=== PATIENT | male | born 1960 | race Caucasian/White ===

== ENCOUNTER 2020-12-16 08:29 | Outpatient (REF) | payer OTHER, SELFPAY ==
[2020-12-16 09:42] LABS: MANUAL DIFF FLAG NO
[2020-12-16 09:46] LABS: Basophils Percent Auto 0.3 % (0-2); Eosinophils Absolute Auto 0.1 X10*3/uL (0.0-0.4); Eosinophils Percent Auto 2.4 % (0-4); Hematocrit 45.5 % (42-52); Hemoglobin 14.6 g/dl (14.0-18.0); Imm Gran Abs Auto 0.01 X10*3/uL (0.00-0.03); Imm Gran Pct Auto 0.3 % (0.0-0.4); Lymphocytes Absolute Auto 1.1 X10*3/uL (1.2-4.9); Lymphocytes Percent Auto 37.2 % (20-40); Mean Corpuscular HGB Conc 32.1 g/dl (31.0-36.0); Mean Corpuscular Hemoglobin 27.8 pg (27.0-33.0); Mean Corpuscular Volume 86.5 fL (80-98); Mean Platelet Volume 9.4 fL (9.4-12.4); Monocytes Absolute Auto 0.3 X10*3/uL (0.1-1.2); Monocytes Percent Auto 10.8 % (2-11); Neutrophils Absolute Auto 1.5 X10*3/uL (2.0-8.3); Platelet Count 179 X10*3/uL (160-400); Red Blood Count 5.26 X10*6/uL (4.60-5.80); Red Cell Distribution Width 12.4 % (11.0-16.0)
[2020-12-16 10:16] LABS: Alanine Aminotransferase 15 U/L (0-40); Albumin Level 4.2 g/dL (3.5-5.0); Alkaline Phosphatase 64 U/L (39-117); Anion Gap 12 (12-20); Aspartate Amino Transferase 22 U/L (5-37); Bilirubin Total 0.9 mg/dL (0.0-1.0); Blood Urea Nitrogen 14 mg/dL (9-16); Calcium 9.3 mg/dL (8.4-10.2); Carbon Dioxide 28 mmol/L (22-29); Chloride 106 mmol/L (96-108); Cholesterol 196 mg/dL; Estimated Glomerular Filt Rate > 60; Glucose Random 83 mg/dL (60-115); HDL Cholesterol 50 mg/dL; LDL Cholesterol Calculated 133 mg/dl; Sodium 141 mmol/L (135-145); Total Protein 6.6 g/dL (6.5-8.0); Triglycerides 65 mg/dL
[2020-12-16 10:40] LABS: Free T4 (Free Thyroxine) 1.04 ng/dL (0.71-1.85); Thyroid Stimulating Hormone 1.08 uIU/mL (0.32-4.0)
[2020-12-18 03:56] LABS: Folate 9.4 ng/mL (> or = 4.0); Vitamin B12 501 pg/mL (200-900)
== END 2020-12-16 08:30 | disposition home or self-care (01) ==
LOC: HO.LAB 08:29
PROVIDERS: PCP Internal Medicine; Visit Provider Internal Medicine
DX: E78.00 Pure hypercholesterolemia, unspecified (principal); Z12.5 Encounter for screening for malignant neoplasm of prostate
CPT/HCPCS: 36415; 80053; 80061; 82607; 82746; 84153; 84439; 84443; 85025

== ENCOUNTER 2022-12-07 09:29 | Outpatient (REF) | payer OTHER, SELFPAY ==
[2022-12-07 09:38] LABS: MANUAL DIFF FLAG NO
[2022-12-07 10:43] LABS: Basophils Percent Auto 0.3 % (0-2); Eosinophils Absolute Auto 0.1 X10*3/uL (0.0-0.4); Eosinophils Percent Auto 2.2 % (0-4); Hematocrit 45.5 % (42.0-52.0); Hemoglobin 14.7 g/dl (14.0-18.0); Lymphocytes Absolute Auto 1.4 X10*3/uL (1.2-4.9); Lymphocytes Percent Auto 38.5 % (20-40); Mean Corpuscular HGB Conc 32.3 g/dl (31.0-36.0); Mean Corpuscular Hemoglobin 27.6 pg (27.0-33.0); Mean Corpuscular Volume 85.5 fL (80.0-98.0); Mean Platelet Volume 9.1 fL (9.4-12.4); Monocytes Absolute Auto 0.4 X10*3/uL (0.1-1.2); Monocytes Percent Auto 10.1 % (2-11); Neutrophils Absolute Auto 1.8 x10*3/uL (2.0-8.3); Neutrophils Percent Auto 48.9 % (45-73); Platelet Count 200 X10*3/uL (160-400); Red Blood Count 5.32 X10*6/uL (4.60-5.80); Red Cell Distribution Width 12.6 % (11.0-16.0); White Blood Count 3.7 X10*3/uL (4.8-10.8)
[2022-12-07 11:19] LABS: Alanine Aminotransferase 16 U/L (0-40); Albumin Level 4.1 g/dL (3.5-5.0); Alkaline Phosphatase 72 U/L (39-117); Anion Gap 11 (12-20); Aspartate Amino Transferase 22 U/L (5-37); Bilirubin Total 0.9 mg/dL (0.0-1.0); Blood Urea Nitrogen 13 mg/dL (9-16); Calcium 9.2 mg/dL (8.4-10.2); Carbon Dioxide 30 mmol/L (22-29); Chloride 106 mmol/L (96-108); Cholesterol 186 mg/dL; Estimated Glomerular Filt Rate > 60; Glucose Random 90 mg/dL (60-115); HDL Cholesterol 48 mg/dL; LDL Cholesterol Calculated 125 mg/dl; Potassium 4.2 mmol/L (3.3-5.1); Sodium 143 mmol/L (135-145); Total Protein 6.4 g/dL (6.5-8.0); Triglycerides 65 mg/dL
[2022-12-07 11:50] LABS: Folate 11.2 ng/mL (> or = 4.0); Free T4 (Free Thyroxine) 1.03 ng/dL (0.71-1.85); Prostate Specific Antigen Scr 2.62 ng/mL (<0.05-4.0); Thyroid Stimulating Hormone 1.18 uIU/mL (0.32-4.0); Vitamin B12 749 pg/mL (200-900)
== END 2022-12-07 09:30 | disposition home or self-care (01) ==
LOC: HO.LAB 09:29
PROVIDERS: PCP Internal Medicine; Visit Provider Internal Medicine
DX: E78.00 Pure hypercholesterolemia, unspecified (principal); Z12.5 Encounter for screening for malignant neoplasm of prostate
CPT/HCPCS: 36415; 80053; 80061; 82607; 82746; 84153; 84439; 84443; 85025

== ENCOUNTER 2024-01-09 16:02 | Outpatient (AMB) | payer BC, SELFPAY ==
[2024-01-09 16:03] VITALS: BP 102/68; PULSE 72; O2SAT 98; BMI 23.9
--- NOTE | 2024-01-09 16:03 | A.OFFPC_ITS ---
Vital Signs 3 01/09/24 16:03 Height 5 ft 9 in Weight 162 lb 0.8 oz BMI 23.9 BP 102/68 Blood Pressure Location Lt brachial Position Sitting Pulse 72 Pulse Source Pulse Oximeter Pulse Oximetry (%) 98 Oxygen Delivery Method Room Air Intake Visit Reasons: Annual PE Intake Note: Patient is here today for a physical. 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 Allergies No Known Allergies Allergy (Verified 01/09/24 16:04) Medication List - Last Reconciled 01/09/24 by Mechelle Modi MD cholecalciferol (vitamin D3) 50 mcg PO DAILY Tobacco use date assessed: 01/09/24 Fall risk assessment: No Falls in past year Last assessed Fall Risk: 01/09/24 Dental Screening Dental Screen Date: 01/09/24 Did you have a dental visit in the last 12 months?: Yes Did you have a dental problem in the last 6 months where you did not have access to dental care?: No Was dental information given to patient?: Patient has dentist HPI Annual PE 2 HPI0 Details 63-year-old male with hypercholesterolem ia last seen last year for physical. Colonoscopy September 2012. 3 weeks ago lower back pain PFSH Medical History (Updated 01/09/24 @ 17:00 by Mechelle Modi MD) Pleomorphic adenoma of minor salivary gland Hay fever Vitamin D deficiency Hypercholesterolemia Surgical History (Updated 11/12/20 @ 16:12 by Mechelle Modi MD) History of tonsillectomy H/O inguinal hernia repair Family History (Updated 11/26/22 @ 10:58 by Gaviota Soto CMA) Father Lung cancer Brother Substance abuse Mother No problems noted. Sister No problems noted. Sister No problems noted. Social History (Updated 01/09/24 @ 16:38 by Mechelle Modi MD) Housing: House Alcohol intake: current Alcohol intake frequency: a few times a month Comment: 2 beers a month Patient Tobacco Use Status: Never used Tobacco e-Cigarette/Vaping Use: Never Used Second Hand Smoke Exposure: No Current occupational status: employed Cognitive needs: No Hearing needs: Yes Vision needs: Yes Questionnaire PHQ-9 Over the last 2 weeks, how often have you been bothered by any of the following problems? 1. Little interest or pleasure in doing things: not at all 2. Feeling down, depressed, or hopeless: not at all 3. Trouble falling or staying asleep, or sleeping too much: not at all 4. Feeling tired or having little energy: not at all 5. Poor appetite or overeating: not at all 6. Feeling bad about yourself - or that you are a failure or have let yourself or your family down: not at all 7. Trouble concentrating on things, such as reading the newspaper or watching television: not at all 8. Moving or speaking so slowly that other people could have noticed. Or the opposite - being so fidgety or restless that you have been moving around a lot more than usual: not at all 9. Thoughts that you would be better off or of hurting yourself in some way: not at all Total score: 0 Depression Screening Interpretation: Negative Depression Screening Done: Yes Source: Developed by Drs. Tomer Remy, Valeria Hernandez, Sukumar Edmonds and colleagues, with an educational valery from [employer] Thrive Questionnaire Date Thrive assessed: 01/09/24 I am a: Patient What is your living situation today?: I have a steady place to live Within the past 12 months, did the food you bought not last and you didn't have the money to get more?: Never true Within the past 12 months, did you worry whether your food would run out before you got money to buy more?: Never true Do you have trouble paying for medicines?: No Do you have trouble getting transportation to medical appointments?: No Do you have trouble paying your heating and electricity bill?: No Do you have trouble taking care of your child, family member or friend?: No Do you have trouble with day-to-day activities such as bathing, preparing meals, shopping, managing finances, etc.?: No Are you currently unemployed and looking for a job?: No Are you interested in more education?: No Please select the resources that you would like help with: None Currently or been in a relationship where the following occur: no concerns reported THRIVE Score: 0 AUDIT C Alcohol Use Questionnaire (AUDIT-C) 1. How often do you have a drink containing alcohol?: Monthly or less 2. How many drinks containing alcohol do you have on a typical day when you are drinking?: 1 or 2 3. How often do you have six or more drinks on one occasion?: Never Total Score: 1 HOMA-7 AMB Questionnaire HOMA-7 Date HOMA - 7 assessed: 01/09/24 Feeling nervous, anxious, or on edge: 0 = Not at all Not being able to stop or control worryin = Not at all Worrying too much about different things: 0 = Not at all Trouble relaxin = Not at all Being so restless that it is hard to sit still: 0 = Not at all Becoming easily annoyed or irritable: 0 = Not at all Feeling afraid as if something awful might happen: 0 = Not at all Total HOMA-7 score (0-4 normal; 5-9 mild; 10-14 moderate; 15-21 severe): 0 Source: Developed by Drs. Tomer Remy, Valeria Hernandez, Sukumar Edmonds and colleagues, with an educational valery from [employer] HOMA-7 Assessment Billing HOMA-7 Assessment Tool: HOMA-7 Assessment 98180 Review of Systems Const Denies poor appetite and Denies weakness Eyes Denies no additional complaints ENT Reports Normal hearing present, Denies dizziness, Denies nasal congestion, Denies tinnitus and Denies sore throat Card Denies chest pain, Denies syncope, Denies rapid heart rate and Denies dyspnea Resp Denies cough and Denies dyspnea GI Denies change in stool character, Reports constipation, Denies diarrhea, Denies nausea and Denies vomiting Denies dysuria and Denies urinary frequency Neuro Reports Normal hearing present, Denies confusion, Denies dizziness, Denies syncope and Denies weakness Psych Denies confusion Physical exam (Primary Care) Vital Signs: Last Vital Signs Pulse 72 01/09/24 16:03 BP 102/68 01/09/24 16:03 Pulse Ox 98 01/09/24 16:03 Oxygen Delivery Method Room Air 01/09/24 16:03 BMI result Body Mass Index 23.9 Tobacco/Smoking Status: Tobacco use Status Tobacco use date assessed 01/09/24 01/09/24 16:05 Patient Tobacco Use Status Never used Tobacco 01/09/24 16:05 e-Cigarette/Vaping Use Never Used 01/09/24 16:05 PHQ-9: PHQ-9 Score PHQ-9: Total score 0 01/09/24 16:09 Depression Screening Interpretation: Negative Thrive Assessment: Date of Thrive Assessment Date Thrive assessed 01/09/24 01/09/24 16:05 Currently or been in a relationship where the following occur: no concerns reported Const General: No confusion Orientation/consciousness: No confusion HENRI Head: Yes normocephalic Head images: 2 1. 3 cm mass noted hard mass, no redness Ears: external ears normal and TM's normal bilaterally Face and sinus: Yes normal facial exam Mouth: moist mucous membranes Throat: Yes tonsils normal Eyes Conjunctivae: conjunctivae normal Pupils: Equal, round and reactive pupils present and Pupil accommodation reflex normal Direct Ophthalmoscopy: normal light reflex Neck Neck: No lymphadenopathy Thyroid: Thyroid normal Chest Chest palpation & inspection: normal inspection of the chest Resp Effort & Inspection: normal respiratory effort and no audible wheezes Auscultation: clear to auscultation bilaterally, no crackles, no wheezes and lung sounds not diminished Cardio Rate: regular rate Rhythm: regular rhythm Peripheral pulses: radial pulses present and dorsalis pedis present GI Palpation (GI): no masses Auscultation: normal bowel sounds and normoactive bowel sounds Rectal Exam - Male: Yes deferred Abdomen image: 2 1. ventral hernia 2. R inguinal hernia Male General Exam: Yes normal external exam Skin General skin exam: no rashes or lesions noted Rashes: no rashes Neuro General: No confusion Cranial nerves: Yes Equal, round and reactive pupils present and Yes Normal hearing present Cognition (Neuro): normal cognition Gait exam (Neuro): Normal gait present Motor exam (neuro): 5/5 motor strength present throughout Deep tendon reflexes (DTR's): Right brachioradialis reflex intensity grade: 2+, Left brachioradialis reflex intensity grade: 2+, Right patellar reflex intensity grade: 2+ and Left patellar reflex intensity grade: 2+ Extrem General: No edema Assessment and Plan Assessment & Plan (1) Annual physical exam: Code(s): Z00.00 - Encounter for general adult medical examination without abnormal findings (2) Hypercholesterolemia: Code(s): E78.00 - Pure hypercholesterolemia, unspecified Plan: Avoid fried foods, chicken skin, eggs, butter margarine, pastries and meat. Be it pork or beef they have a lot of cholesterol LDL goal of less than 130 and triglyceride of less than 150 diet controlled (3) Colon cancer screening: Code(s): Z12.11 - Encounter for screening for malignant neoplasm of colon Plan: Reminded about colonoscopy (4) Low back pain: Code(s): M54.50 - Low back pain, unspecified Plan: heat helps and stretches and exercises (5) Right inguinal hernia: Code(s): K40.90 - Unilateral inguinal hernia, without obstruction or gangrene, not specified as recurrent Plan: will be seing surgeon (6) Ventral hernia: Code(s): K43.9 - Ventral hernia without obstruction or gangrene Plan: will be seeing the surgeon (7) Pleomorphic adenoma of minor salivary gland: Comment: 08/2012 Dr. Cha benign mixed tumor Code(s): D10.39 - Benign neoplasm of other parts of mouth Orders: Orders 2 Thyroid Stimulating Hormone Today E78.00 - Pure hypercholesterolemia, unspecified Complete Blood Count Auto Diff Today E78.00 - Pure hypercholesterolemia, unspecified Comprehensive Met. Panel Today E78.00 - Pure hypercholesterolemia, unspecified Free T4 (Free Thyroxine) Today E78.00 - Pure hypercholesterolemia, unspecified Lipid Panel Today E78.00 - Pure hypercholesterolemia, unspecified Vitamin B12 and Folate Today E78.00 - Pure hypercholesterolemia, unspecified Prostate Specific Antigen Scr Today E78.00 - Pure hypercholesterolemia, unspecified Referrals 2 General Surgery Referral D10.39 - Benign neoplasm of other parts of mouth, K40.90 - Unilateral inguinal hernia, without obstruction or gangrene, not specified as recurrent, K43.9 - Ventral hernia without obstruction or gangrene, Z12.11 - Encounter for screening for malignant neoplasm of colon Coding Level of Care Code Est Pt Prev Care 40-64y([id number]) Diagnoses Annual physical exam Z00.00 Hypercholesterolemia E78.00 Colon cancer screening Z12.11 Low back pain M54.50 Right inguinal hernia K40.90 Ventral hernia K43.9 Pleomorphic adenoma of minor salivary gland D10.39 Additional Codes HOMA-7 Assessment Billing - HOMA-7 Assessment Tool: HOMA-7 Assessment 92644 ([id number])
== END 2024-01-09 17:04 | disposition home or self-care (01) ==
PROVIDERS: PCP Internal Medicine; Visit Provider Internal Medicine
DX: Z00.00 Encounter for general adult medical examination without abnormal findings (principal); E78.00 Pure hypercholesterolemia, unspecified; Z12.11 Encounter for screening for malignant neoplasm of colon; M54.50 Low back pain, unspecified; K40.90 Unilateral inguinal hernia, without obstruction or gangrene, not specified as recurrent; K43.9 Ventral hernia without obstruction or gangrene; D10.39 Benign neoplasm of other parts of mouth
CPT/HCPCS: 99396

== ENCOUNTER 2024-01-17 08:52 | Outpatient (REF) | payer BC, SELFPAY ==
[2024-01-17 09:06] LABS: MANUAL DIFF FLAG NO
[2024-01-17 09:55] LABS: Basophils Percent Auto 0.5 % (0-2); Eosinophils Absolute Auto 0.2 X10*3/uL (0.0-0.4); Eosinophils Percent Auto 4.6 % (0-4); Hematocrit 44.2 % (42.0-52.0); Hemoglobin 14.3 g/dl (14.0-18.0); Imm Gran Abs Auto 0.02 X10*3/uL (0.00-0.03); Imm Gran Pct Auto 0.5 % (0.0-0.4); Lymphocytes Absolute Auto 1.4 X10*3/uL (1.2-4.9); Mean Corpuscular HGB Conc 32.4 g/dl (31.0-36.0); Mean Corpuscular Hemoglobin 27.8 pg (27.0-33.0); Mean Corpuscular Volume 85.8 fL (80.0-98.0); Mean Platelet Volume 9.1 fL (9.4-12.4); Monocytes Absolute Auto 0.4 X10*3/uL (0.1-1.2); Monocytes Percent Auto 10.1 % (2-11); Neutrophils Absolute Auto 1.7 x10*3/uL (2.0-8.3); Neutrophils Percent Auto 46.3 % (45-73); Platelet Count 210 X10*3/uL (160-400); Red Blood Count 5.15 X10*6/uL (4.60-5.80); Red Cell Distribution Width 12.6 % (11.0-16.0); White Blood Count 3.7 X10*3/uL (4.8-10.8)
[2024-01-17 10:33] LABS: Alanine Aminotransferase 13 U/L (0-40); Albumin Level 3.9 g/dL (3.5-5.0); Alkaline Phosphatase 68 U/L (39-117); Anion Gap 12 (12-20); Aspartate Amino Transferase 18 U/L (5-37); Bilirubin Total 0.5 mg/dL (0.0-1.0); Blood Urea Nitrogen 17 mg/dL (9-16); Calcium 9.5 mg/dL (8.4-10.2); Carbon Dioxide 27 mmol/L (22-29); Chloride 107 mmol/L (96-108); Cholesterol 176 mg/dL (<200); Estimated Glomerular Filt Rate > 60; Glucose Random 85 mg/dL (60-115); HDL Cholesterol 51 mg/dL (>40); LDL Cholesterol Calculated 114 mg/dL (<100); Potassium 4.6 mmol/L (3.3-5.1); Sodium 141 mmol/L (135-145); Total Protein 6.5 g/dL (6.5-8.0); Triglycerides 59 mg/dL (<150)
[2024-01-17 10:56] LABS: Free T4 (Free Thyroxine) 0.97 ng/dL (0.71-1.85); Thyroid Stimulating Hormone 1.35 uIU/mL (0.32-4.0)
[2024-01-17 11:02] LABS: Folate 7.8 ng/mL (> or = 4.0); Prostate Specific Antigen Scr 3.44 ng/mL (<0.05-4.0); Vitamin B12 503 pg/mL (200-900)
== END 2024-01-17 08:53 | disposition home or self-care (01) ==
LOC: HO.LAB 08:52
PROVIDERS: PCP Internal Medicine; Visit Provider Internal Medicine
DX: E78.00 Pure hypercholesterolemia, unspecified (principal); Z12.5 Encounter for screening for malignant neoplasm of prostate
CPT/HCPCS: 36415; 80053; 80061; 82607; 82746; 84153; 84439; 84443; 85025

== ENCOUNTER 2024-04-05 13:18 | Outpatient (AMB) | payer BC, SELFPAY ==
[2024-04-05 13:19] VITALS: BMI 23.9
--- NOTE | 2024-04-05 13:19 | A.OFFVIS_ITS ---
Vital Signs 04/05/24 13:19 Height 5 ft 9 in Weight 162 lb 0.812 oz BMI 23.9 Intake Visit Reasons: recall colonoscopy Intake Note: This patient presents for a recall colonoscopy screening. Pt c/o; last colonoscopy 2012, reports no complaints. 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 His last colonoscopy was in 2012. He had hemorrhoids at that time but the rest of his colonoscopy findings were unremarkable He denies any GI complaints. He says he feels well overall. [facility] [place] Medical History (Updated 04/05/24 @ 14:35 by Mohan Bland MD) Epigastric hernia Pleomorphic adenoma of minor salivary gland Hay fever Vitamin D deficiency Hypercholesterolemia Surgical History History of tonsillectomy H/O inguinal hernia repair Family History Father Lung cancer Brother Substance abuse Mother No problems noted. Sister No problems noted. Sister No problems noted. Social History Housing: House Alcohol intake: current Alcohol intake frequency: a few times a month Comment: 2 beers a month Patient Tobacco Use Status: Never used Tobacco e-Cigarette/Vaping Use: Never Used Second Hand Smoke Exposure: No Current occupational status: employed Cognitive needs: No Hearing needs: Yes Vision needs: Yes Review of Systems Const Denies chills and Denies fever(s) Card Denies chest pain, Denies dyspnea and Denies dyspnea on exertion Resp Denies cough, Denies dyspnea and Denies dyspnea on exertion GI Denies hematochezia and Denies change in bowel habits Denies hematuria and Denies difficulty urinating Musc Denies back pain and Denies limited range of motion Neuro Denies focal weakness and Denies convulsions Psych Denies depression and Denies mood swings Physical Exam Vital Signs: BMI result Body Mass Index 23.9 Const General: comfortable and no acute distress Orientation/consciousness: patient oriented x3 HEENT Other: Mass on the lower aspect of the left mandible, well-defined, mobile, about 3.5 cm Neck Neck: Yes no lymphadenopathy Resp Auscultation: clear to auscultation bilaterally Cardio Rhythm: regular rhythm GI Other: Epigastric hernia, about 2.5 cm, left reducible Hernia on the right groin, reducible, nontender Palpation (GI): Soft to palpation, nontender and no guarding Neuro General: patient oriented x3 Assessment & Plan Assessment & Plan (1) Colon cancer screening: Code(s): Z12.11 - Encounter for screening for malignant neoplasm of colon Category: Medical Plan: He is due for screening colonoscopy. I reviewed with him the technique of colonoscopy. I discussed the risks including but not limited to bleeding and perforation, as well as the benefits and alternatives. He understands and wants to proceed. (2) Epigastric hernia: Code(s): K43.9 - Ventral hernia without obstruction or gangrene Category: Medical Plan: Physical exam does reveal any epigastric hernia as well as a right inguinal hernia. He is aware about this he says. Explained to him the option of repair even if these appeared to be symptomatic at this time He says we will discuss this option of repair once he is done with his colonoscopy. Coding Level of Care Code New Pt Level 3 (48041) Diagnoses Colon cancer screening Z12.11 Epigastric hernia K43.9
== END 2024-04-05 14:31 | disposition home or self-care (01) ==
PROVIDERS: PCP Internal Medicine; Visit Provider Surgery
DX: K43.9 Ventral hernia without obstruction or gangrene (principal); Z12.11 Encounter for screening for malignant neoplasm of colon
CPT/HCPCS: 99203

== ENCOUNTER → 2024-04-05 13:18 | Outpatient (BNVA) | payer BC, SELFPAY | PROVIDERS: PCP Internal Medicine; Visit Provider Surgery ==

== ENCOUNTER 2024-05-14 10:54 | Day surgery (SDC) | payer BC, SELFPAY ==
[2024-05-12 13:14] VITALS: BMI 23.9
--- NOTE | 2024-05-12 13:45 | P.CONAN_ITS ---
Documented by User: Michelle Irwin NP 05/12/24 13:45 HPI - Anesthesia Eval Consult details Narrative: 64yo M for Colonoscopy with possible Polypectomy PMFSH Active Problems Active Problems: All Active Problems Epigastric hernia (Acute) Pleomorphic adenoma of minor salivary gland (Acute) Ventral hernia (Acute) Right inguinal hernia (Acute) Low back pain (Acute) Colon cancer screening (Acute) COVID-19 virus infection (Acute) Onychomycosis (Acute) Annual physical exam (Acute) Hypercholesterolemia (Acute) Past Medical History Medical History Epigastric hernia Pleomorphic adenoma of minor salivary gland Hay fever Vitamin D deficiency Hypercholesterolemia Family History Family History Father Lung cancer Brother Substance abuse Mother No problems noted. Sister No problems noted. Sister No problems noted. Surgical History Surgical History History of tonsillectomy H/O inguinal hernia repair Social History Social History Housing: House Alcohol intake: current Alcohol intake frequency: holidays/special occasions only Comment: 2 beers a month Patient Tobacco Use Status: Never used Tobacco e-Cigarette/Vaping Use: Never Used Second Hand Smoke Exposure: No Use of substances other than those prescribed or required for medical reasons: No Have you been hit, kicked, punched, or otherwise hurt by someone within the past year? If so, by whom?: No Are you DNR?: No Advance Directives: No Advance Directives Information Provided: Yes Advance Directives on File: No Recently lost weight without trying: No Eating poorly because of decreased appetite: No Nutrition Risks: No Nutritional Risk Poor oral hygiene: No Current occupational status: employed Cognitive needs: No Hearing needs: Yes Vision needs: Yes Meds Allergies Allergy/AdvReac Type Severity Reaction Status Date / Time No Known Allergies Allergy Verified 04/05/24 13:26 Home Medications ?Medication ?Instructions ?Recorded ?Confirmed ?Last Taken ?Type cholecalciferol (vitamin D3) 50 50 mcg PO DAILY 11/16/20 05/14/24 Unknown History mcg (2,000 unit) capsule Exam Height,Weight and Vital Signs: Height 5 ft 9 in Weight 73.482 kg Assessment and Plan Assessment Anesthesia Assessment: Chart Reviewed Documented by User: Sarai Zaidi MD 05/14/24 12:38 [facility] Past Medical History Medical History Epigastric hernia Pleomorphic adenoma of minor salivary gland Hay fever Vitamin D deficiency Hypercholesterolemia Family History Family History Father Lung cancer Brother Substance abuse Mother No problems noted. Sister No problems noted. Sister No problems noted. Family history of problems with anesthesia: No Surgical History Surgical History History of tonsillectomy H/O inguinal hernia repair History of Problems with Anesthesia: No Social History Social History Housing: House Alcohol intake: current Alcohol intake frequency: holidays/special occasions only Comment: 2 beers a month Patient Tobacco Use Status: Never used Tobacco e-Cigarette/Vaping Use: Never Used Second Hand Smoke Exposure: No Use of substances other than those prescribed or required for medical reasons: No Have you been hit, kicked, punched, or otherwise hurt by someone within the past year? If so, by whom?: No Are you DNR?: No Advance Directives: No Advance Directives Information Provided: Yes Advance Directives on File: No Recently lost weight without trying: No Eating poorly because of decreased appetite: No Nutrition Risks: No Nutritional Risk Poor oral hygiene: No Current occupational status: employed Cognitive needs: No Hearing needs: Yes Vision needs: Yes Meds Allergies Allergy/AdvReac Type Severity Reaction Status Date / Time No Known Allergies Allergy Verified 04/05/24 13:26 Home Medications ?Medication ?Instructions ?Recorded ?Confirmed ?Last Taken ?Type cholecalciferol (vitamin D3) 50 50 mcg PO DAILY 11/16/20 05/14/24 Unknown History mcg (2,000 unit) capsule Exam Airway Mallampati Class: IV (receding chin, chipped front tooth , grade 4 airway) TM Dist: <=3cm Neck ROM: Poor Heart: rrr Lungs: cta Assessment and Plan Assessment Anesthesia Assessment: Anesthesia Plan Discussed Final Anesthetic Review Family History of Problems with Anesthesia: No History of Problems with Anesthesia: No NPO: Yes ASA Class: III Final Preanesthetic Review: No Changes in Pt Med Stat, Meds/Allgs Chart Reviewed and Consent Obtained/Reviewed Patient Risk: Intermediate Procedure Risk: Low Anesthetic Plan Anesthetic Plan: MAC: Disposition: Standard PACU
[2024-05-14 11:00] VITALS: BP 117/84; PULSE 109; RESP 16; TEMP 36.7; O2SAT 98
[2024-05-14] MEDS: Lactated Ringers 1,000 ML 100 ML IVCONT (11:22)
--- NOTE | 2024-05-14 11:25 | PC.NURSE ---
patient started second half of bowel prep at 0500 this morning and finished it by 0630. patient stated I drank the rest of my prep at 0500 along with 64oz of water . Dr. Zaidi, anesthesiologist made aware.
--- NOTE | 2024-05-14 11:27 | MHC.SHP ---
Pre-Procedural Eval Section A - 24 Hr Update-Section A only Date of Service: 05/14/24 Section B - Complete if H&P > 30 days Chief Complaint: screening Details of Present Illness: Screening colonoscopy, no GI complaints Relevant Family History (Specify if Yes): No Relevant Social History: None Present Medications: see Short Stay Collaborative assessment Medical History: Significant History (Chronic low back pain, hyperlipidemia, pleomorphic adenoma of the salivary gland) Allergies: Allergies Allergy/AdvReac Type Severity Reaction Status Date / Time No Known Allergies Allergy Verified 04/05/24 13:26 Review of Systems Sugical H&P ROS: Negative: Constitution, Cardiovascular, Respiratory, Neurological, Psychiatric, Hem-Onc, Allergic/Immunologic, Gastrointestinal, Genitourinary, Musculoskeletal, Integumentary, Endocrine and Eyes/Ears/Nose/Throat Exam Surgical H&P Exam: Normal: Heart, Normal: Lungs and Normal: Abdomen Plan Diagnosis/Plan: Unchanged I have reviewed the history and physical and performed a pertinent physical examination on my patient. No changes have occurred unless specified. Time Spent With Patient Time: Total time managing care of this patient today ____ minutes.
--- NOTE | 2024-05-14 13:00 | W.PM.OPN ---
Operative Note Operative Note Date of Service: 05/14/24 Narrative: Preop diagnosis: Colon cancer screening Postop diagnosis: 1. Diverticulosis sigmoid and left colon, moderate 2. External hemorrhoids 3. Otherwise normal colonoscopy findings Procedure: Colonoscopy Surgeon: Mohan Bland MD The patient is a 64-year-old male here for screening colonoscopy. He understood the technique of the planned procedure as well as the risks, benefits, and alternatives. The patient was brought to the operating room and placed in left lateral decubitus position under monitored anesthesia care. A surgical time-out was done. A full digital rectal exam was done and this did not reveal any significant anal lesions. The tip of the Olympus colonoscope was gently introduced through the anal orifice advanced with insufflation all the way to the cecum. The cecum was intubated. The cecum was identified by visualization of the ileocecal valve as well as the appendiceal orifice. The cecal mucosa was unremarkable. The scope was gradually withdrawn with careful examination of the entire colonic mucosa being done with scope withdrawal. The patient had adequate bowel prep so it was unlikely that any lesion may have been missed. There was note of moderate diverticulosis from the sigmoid to the left colon. The rectum was reached and there were no lesions seen. The anal canal was unremarkable. The scope was then withdrawn completely with desufflation The patient tolerated procedure well. There were no immediate complications. Withdrawal time was about 7 minutes. His next colonoscopy may be in the next 10 years.
[2024-05-14 13:05] VITALS: BP 101/65; PULSE 90; RESP 12; TEMP 36.1; O2SAT 93
[2024-05-14 13:20] VITALS: BP 119/73; PULSE 89; RESP 14; O2SAT 96
[2024-05-14 13:33] VITALS: BP 128/76; PULSE 89; RESP 15; TEMP 36.2; O2SAT 98
== END 2024-05-14 13:48 | disposition home or self-care (01) ==
PROVIDERS: PCP Internal Medicine; Visit Provider Surgery
PROC: 0DBE8ZZ Excision of Large Intestine, Via Natural or Artificial Opening Endoscopic (ICD-10-PCS; CPT G0121; principal; 2024-05-14 12:30)
DX: Z12.11 Encounter for screening for malignant neoplasm of colon (principal); K57.30 Diverticulosis of large intestine without perforation or abscess without bleeding; K64.4 Residual hemorrhoidal skin tags; E78.00 Pure hypercholesterolemia, unspecified; Z79.899 Other long term (current) drug therapy
CPT/HCPCS: G0121; J2704

== ENCOUNTER → 2024-05-14 10:54 | Outpatient (BNV) | payer BC, SELFPAY | PROVIDERS: PCP Internal Medicine; Visit Provider Surgery | DX: Z12.11 Encounter for screening for malignant neoplasm of colon (principal); K57.90 Diverticulosis of intestine, part unspecified, without perforation or abscess without bleeding; K64.9 Unspecified hemorrhoids | CPT/HCPCS: 45378 ==

== ENCOUNTER 2025-07-07 15:49 | Outpatient (AMB) | payer BC, SELFPAY ==
--- NOTE | 2025-07-07 15:59 | A.OFFPC_ITS ---
Vital Signs 07/07/25 16:01 Height 5 ft 8 in Weight 164 lb 6 oz BMI 25.0 BP 120/70 Blood Pressure Location Lt brachial Position Sitting Pulse 78 Pulse Source Pulse Oximeter Temp 97.3 F Temp Source Temporal Artery Scan Pulse Oximetry (%) 99 Oxygen Delivery Method Room Air Intake Visit Reasons: physical Intake Note: Patient is here today for a physical. 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 Allergies No Known Allergies Allergy (Verified 07/07/25 16:02) Medication List - Last Reconciled 07/07/25 by Mechelle Modi MD cholecalciferol (vitamin D3) 50 mcg PO DAILY Tobacco use date assessed: 07/07/25 Fall risk assessment: No Falls in past year Last assessed Fall Risk: 01/09/24 Dental Screening Dental Screen Date: 07/07/25 Did you have a dental visit in the last 12 months?: Yes Did you have a dental problem in the last 6 months where you did not have access to dental care?: No Was dental information given to patient?: Patient has dentist HPI physical HPI Details hearing aid use, cough 2 months increasing severity, from a cruise [facility] Medical History (Updated 07/07/25 @ 18:22 by Mechelle Modi MD) Colon cancer screening Epigastric hernia Pleomorphic adenoma of minor salivary gland Hay fever Vitamin D deficiency Hypercholesterolemia Surgical History History of tonsillectomy H/O inguinal hernia repair Family History Father Lung cancer Brother Substance abuse Mother No problems noted. Sister No problems noted. Sister No problems noted. Social History Housing: House Alcohol intake: current Alcohol intake frequency: holidays/special occasions only Comment: 2 beers a month Patient Tobacco Use Status: Never used Tobacco e-Cigarette/Vaping Use: Never Used Second Hand Smoke Exposure: No Current occupational status: employed Cognitive needs: No Hearing needs: Yes Vision needs: Yes Questionnaire PHQ-9 Over the last 2 weeks, how often have you been bothered by any of the following problems? 1. Little interest or pleasure in doing things: not at all 2. Feeling down, depressed, or hopeless: not at all 3. Trouble falling or staying asleep, or sleeping too much: not at all 4. Feeling tired or having little energy: not at all 5. Poor appetite or overeating: not at all 6. Feeling bad about yourself - or that you are a failure or have let yourself or your family down: not at all 7. Trouble concentrating on things, such as reading the newspaper or watching television: not at all 8. Moving or speaking so slowly that other people could have noticed. Or the opposite - being so fidgety or restless that you have been moving around a lot more than usual: not at all 9. Thoughts that you would be better off or of hurting yourself in some way: not at all Total score: 0 Depression Screening Interpretation: Negative Depression Screening Done: Yes Source: Developed by Drs. Tomer Remy, Valeria Hernandez, Sukumar Edmonds and colleagues, with an educational valery from [employer]. Thrive Questionnaire Date Thrive assessed: 07/07/25 I am a: Patient What is your living situation today?: I have a steady place to live Within the past 12 months, did the food you bought not last and you didn't have the money to get more?: Never true Within the past 12 months, did you worry whether your food would run out before you got money to buy more?: Never true Do you have trouble paying for medicines?: No Do you have trouble getting transportation to medical appointments?: No Do you have trouble paying your heating and electricity bill?: No Do you have trouble taking care of your child, family member or friend?: No Do you have trouble with day-to-day activities such as bathing, preparing meals, shopping, managing finances, etc.?: No Are you currently unemployed and looking for a job?: No Are you interested in more education?: No Please select the resources that you would like help with: None THRIVE Score: 0 AUDIT C Alcohol Use Questionnaire (AUDIT-C) 1. How often do you have a drink containing alcohol?: Monthly or less 2. How many drinks containing alcohol do you have on a typical day when you are drinking?: 1 or 2 3. How often do you have six or more drinks on one occasion?: Never Total Score: 1 HOMA-7 AMB Questionnaire HOMA-7 Date HOMA - 7 assessed: 07/07/25 Feeling nervous, anxious, or on edge: 0 = Not at all Not being able to stop or control worryin = Not at all Worrying too much about different things: 0 = Not at all Trouble relaxin = Not at all Being so restless that it is hard to sit still: 0 = Not at all Becoming easily annoyed or irritable: 0 = Not at all Feeling afraid as if something awful might happen: 0 = Not at all Total HOMA-7 score (0-4 normal; 5-9 mild; 10-14 moderate; 15-21 severe): 0 Source: Developed by Drs. Tomer Remy, Valeria Hernandez, Sukumar Edmonds and colleagues, with an educational valery from [employer]. HOMA-7 Assessment Billing HOMA-7 Assessment Tool: HOMA-7 Assessment 00460 Review of Systems Const Denies poor appetite and Denies weakness Eyes Denies no additional complaints ENT Reports Normal hearing present, Denies dizziness, Denies nasal congestion, Denies tinnitus and Denies sore throat Card Denies chest pain, Denies syncope, Denies rapid heart rate and Denies dyspnea Resp Denies cough and Denies dyspnea GI Denies change in stool character, Reports constipation, Denies diarrhea, Denies nausea and Denies vomiting Denies dysuria and Denies urinary frequency Neuro Reports Normal hearing present, Denies confusion, Denies dizziness, Denies syncope and Denies weakness Psych Denies confusion Physical exam (Primary Care) Vital Signs: Last Vital Signs Temp 97.3 F 07/07/25 16:01 Pulse 78 07/07/25 16:01 BP 120/70 07/07/25 16:01 Pulse Ox 99 07/07/25 16:01 Oxygen Delivery Method Room Air 07/07/25 16:01 BMI result Body Mass Index 25.0 Tobacco/Smoking Status: Tobacco use Status Tobacco use date assessed 07/07/25 07/07/25 16:04 Patient Tobacco Use Status Never used Tobacco 07/07/25 16:00 e-Cigarette/Vaping Use Never Used 07/07/25 16:00 PHQ-9: PHQ-9 Score PHQ-9: Total score 0 07/07/25 18:22 Depression Screening Interpretation: Negative Thrive Assessment: Date of Thrive Assessment Date Thrive assessed 07/07/25 07/07/25 16:04 Const General: alert and awake; No confusion Orientation/consciousness: No confusion HENMT Head: Yes normocephalic Ears: external ears normal and TM's normal bilaterally Face and sinus: Yes normal facial exam Mouth: moist mucous membranes Throat: Yes tonsils normal Eyes Conjunctivae: conjunctivae normal Pupils: Equal, round and reactive pupils present and Pupil accommodation reflex normal Direct Ophthalmoscopy: normal light reflex Neck Neck: No lymphadenopathy Thyroid: Thyroid normal Chest Chest palpation & inspection: normal inspection of the chest Resp Effort & Inspection: normal respiratory effort and no audible wheezes Auscultation: clear to auscultation bilaterally, no crackles, no wheezes and lung sounds not diminished Cardio Rate: regular rate Rhythm: regular rhythm Peripheral pulses: radial pulses present and dorsalis pedis present GI Other: guaiac negative , prostate enlarged Palpation (GI): no masses Auscultation: normal bowel sounds and normoactive bowel sounds Rectal Exam - Male: Yes deferred Other: R inguinal hernia, supraumbilcal /vental hernia Skin General skin exam: no rashes or lesions noted Rashes: no rashes Neuro General: deep tendon reflexes 2+ bilaterally and No confusion Cranial nerves: Yes Equal, round and reactive pupils present, Yes Midline tongue present, Yes Normal hearing present and Yes Ability to bilaterally elevate shoulders present Cognition (Neuro): normal cognition Gait exam (Neuro): Normal gait present Motor exam (neuro): 5/5 motor strength present throughout Deep tendon reflexes (DTR's): Right brachioradialis reflex intensity grade: 2+, Left brachioradialis reflex intensity grade: 2+, Right patellar reflex intensity grade: 2+ and Left patellar reflex intensity grade: 2+ Extrem General: No edema Coding Level of Care Code Est Pt Prev Care >65y(66342) Diagnoses Annual physical exam Z00.00 Hypercholesterolemia E78.00 Subacute cough R05.2 Cough type: subacute Right inguinal hernia K40.90 Ventral hernia without obstruction or gangrene K43.9 Obstruction and gangrene presence: without obstruction or gangrene Additional Codes HOMA-7 Assessment Billing - HOMA-7 Assessment Tool: HOMA-7 Assessment 65503 ([id number]) Assessment & Plan Assessment & Plan (1) Annual physical exam: Code(s): Z00.00 - Encounter for general adult medical examination without abnormal findings Category: Medical Plan: Patient is advised to eat healthy, keep well hydrated, keep active and have adequate sleep. (2) Hypercholesterolemia: Code(s): E78.00 - Pure hypercholesterolemia, unspecified Category: Medical Plan: Avoid fried foods, chicken skin, eggs, butter margarine, pastries and meat. Be it pork or beef they have a lot of cholesterol last blood work last year was normal. Will request for a new blood work (3) Cough: Code(s): R05.9 - Cough, unspecified Category: Medical Qualifiers: Cough type: subacute Qualified Code(s): R05.2 - Subacute cough Plan: Patient Declined any further workup for now and states it is resolving. (4) Right inguinal hernia: Code(s): K40.90 - Unilateral inguinal hernia, without obstruction or gangrene, not specified as recurrent Category: Medical Plan: avoid heavy lifting and patient is aware to call if problem is getting worse (5) Ventral hernia: Code(s): K43.9 - Ventral hernia without obstruction or gangrene Category: Medical Qualifiers: Obstruction and gangrene presence: without obstruction or gangrene Qualified Code(s): K43.9 - Ventral hernia without obstruction or gangrene Plan: avoid heavy lifting. Patient is aware to call if getting worse. Plan History of Present Illness The patient is an 65 year old individual presenting for an annual physical examination and health maintenance. The patient has a history of hypercholesterolemia and a stable, chronic mild leukopenia noted on prior lab work. 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 The patient also has an epigastric hernia, which the patient can feel when overeating but is otherwise asymptomatic. The patient reports a slight, dry cough for the last couple of months. This cough worsened and became productive with thick mucus during an evening/night while on a cruise a week ago, but has since improved and is no longer productive. The patient also notes intermittent right arm pain when reaching, which has been improving. Regarding health maintenance, the patient's last colonoscopy was approximately a year ago and was normal, with a 10-year follow-up recommended. The patient has received influenza and COVID-19 vaccinations. The patient reports no medication allergies and is currently taking vitamin B. The patient's father had a history of lung cancer, and a cousin from leukemia. The patient has never smoked cigarettes and reports consuming a couple of beers per month. Health Maintenance - Labs: Previous blood work from January 2024 showed normal electrolytes, renal function, liver function, cholesterol, PSA, folic acid and thyroid levels, with a mild leukopenia. - New labs ordered for fasting blood work including prostate number and cholesterol. - Colonoscopy: Last performed approximately one year ago, with results normal and follow-up recommended in 10 years. - Eye exam: Last performed 2-3 years ago with no findings of cataracts. - Vaccinations: Patient is up to date on influenza and COVID-19 shots. Social History - Alcohol Use: Reports drinking a couple of beers per month. - Tobacco Use: Denies ever smoking. - Family and Social Support: The patient spends a lot of time caring for the patient's 91-year-old mother, who is on hospice care. Review of Systems - Constitutional: Denies fever. - HEENT: Reports hearing is pretty good with hearing aids. Denies vision problems, difficulty swallowing, or sore throat. - Respiratory: Reports a slight, dry cough for two months that is now improving. Denies shortness of breath upon waking. - Cardiovascular: Denies chest pain. - Gastrointestinal: Reports regular bowel movements. Denies constipation and diarrhea. Reports decreased appetite recently. - Genitourinary: Reports occasional nocturia, waking 2-4 times a night, sometimes related to late meals. - Musculoskeletal: Reports intermittent right arm pain when reaching around, which has been improving. - Neurological: Denies passing out or dizziness. Physical Exam General: Cooperative, healthy appearing, comfortable, no acute distress and well developed Orientation: Patient oriented x3 Limitations: No limitations Head: Normal to inspection Ears: Hearing pretty good bilaterally Nose: Normal external nose present Face and sinus: Normal facial exam Eyes: Appearance normal, both eyes and all related structures Neck: Normal visual inspection and Yes full ROM Respiratory: Normal respiratory effort and able to speak in complete sentences. Clear to auscultation bilaterally. No crackles or pneumonia developing. Cardiovascular: Regular rate and rhythm. Normal S1 and S2 GI: Normal to inspection. Soft to palpation and nontender. Epigastric hernia noted. Skin: No rashes or lesions noted Neuro: Patient oriented x3 Extremities: Normal to inspection Results - Prior labs (January 2024): Complete blood count was normal with mild leukopenia. Electrolytes, renal function, liver function, cholesterol, prostate specific antigen, folic acid, and thyroid studies were all within normal limits. - Prior procedures: Colonoscopy performed a year ago was normal, with a recommendation for a 10-year follow-up interval. Plan Patient was informed and verbally consented to the use of an ambient scribe for clinic note documentation during this visit. 1. Wellness Examination And Health Maintenance The patient is up to date on colon cancer screening and recent immunizations. A request for new fasting blood work, including a lipid panel and prostate- specific antigen (PSA), will be made. 2. Hypercholesterolemia The patient has a history of hypercholesterolemia. Last year's labs were normal. We will continue to monitor cholesterol levels with the new fasting blood work that has been ordered. 3. Chronic Cough The patient has had a cough for a couple of months, which appears to be improving and is not associated with congestion or other systemic symptoms. The lung exam was clear. The plan is to monitor symptoms, and if the cough persists or worsens, a chest x-ray will be obtained to ensure the lungs are clear. 4. Benign Prostatic Hyperplasia The physical exam revealed a mildly enlarged prostate. While the patient reports some nocturia, it is not consistent and may be related to dietary habits. The plan is to monitor the PSA level via the ordered blood work and for the patient to report any worsening urinary symptoms, which would prompt further testing. 5. Epigastric Hernia The patient has a known, asymptomatic epigastric hernia. The patient was counseled to be careful with heavy lifting. Discussion Notes I have reviewed the patient's history and conducted a full physical exam. We discussed the patient's chronic cough, and I explained that since the lungs sound clear and the cough is improving, we can monitor it for now. I advised that if it lingers, we should get a chest x-ray to be thorough. I informed the patient about the findings of a mildly enlarged prostate on the rectal exam and some associated hemorrhoids. We discussed that this becomes a clinical problem if urinary symptoms worsen, and that we will monitor the PSA level. I have ordered a new set of fasting blood work, including cholesterol and PSA, and adv ised the patient to avoid heavy lifting due to the epigastric hernia. The patient provided consent for the rectal examination. Patient Instructions - Please go for the fasting blood work that has been ordered for you. - Continue to monitor your cough. If it does not resolve or gets worse, please let me know so we can arrange for a chest x-ray. - Be careful and avoid heavy lifting to prevent strain on your hernia. - Let me know if you experience any increase in the frequency of urination, especially at night. Orders: Orders Comprehensive Met. Panel Today E78.00 - Pure hypercholesterolemia, unspecified Free T4 (Free Thyroxine) Today E78.00 - Pure hypercholesterolemia, unspecified Lipid Panel Today E78.00 - Pure hypercholesterolemia, unspecified Vitamin B12 and Folate Today E78.00 - Pure hypercholesterolemia, unspecified Complete Blood Count Auto Diff Today E78.00 - Pure hypercholesterolemia, unspecified Thyroid Stimulating Hormone Today E78.00 - Pure hypercholesterolemia, unspecified Prostate Specific Antigen Scr Today E78.00 - Pure hypercholesterolemia, unspecified
[2025-07-07 16:01] VITALS: BP 120/70; PULSE 78; TEMP 36.3; O2SAT 99; BMI 25.0
== END 2025-07-07 17:02 | disposition home or self-care (01) ==
LOC: HO.HMCH 15:49
PROVIDERS: PCP Internal Medicine; Visit Provider Internal Medicine
DX: Z00.00 Encounter for general adult medical examination without abnormal findings (principal); E78.00 Pure hypercholesterolemia, unspecified; R05.2 Subacute cough; K40.90 Unilateral inguinal hernia, without obstruction or gangrene, not specified as recurrent; K43.9 Ventral hernia without obstruction or gangrene

== ENCOUNTER → 2025-07-07 15:49 | Outpatient (BNVA) | payer BC, SELFPAY | PROVIDERS: PCP Internal Medicine; Visit Provider Internal Medicine | DX: Z00.00 Encounter for general adult medical examination without abnormal findings (principal); E78.00 Pure hypercholesterolemia, unspecified; R05.2 Subacute cough; K40.90 Unilateral inguinal hernia, without obstruction or gangrene, not specified as recurrent; K43.9 Ventral hernia without obstruction or gangrene | CPT/HCPCS: 96127 ==

== ENCOUNTER 2025-07-09 09:27 | Outpatient (REF) | payer BC, SELFPAY ==
[2025-07-09 09:39] LABS: MANUAL DIFF FLAG NO
[2025-07-09 10:10] LABS: Hematocrit 45.3 % (42.0-52.0); Hemoglobin 15.2 g/dl (14.0-18.0); Imm Gran Abs Auto 0.00 X10*3/uL (0.00-0.03); Imm Gran Pct Auto 0.0 % (0.0-0.4); Lymphocytes Absolute Auto 1.2 X10*3/uL (1.2-4.9); Mean Corpuscular HGB Conc 33.6 g/dl (31.0-36.0); Mean Corpuscular Hemoglobin 28.5 pg (27.0-33.0); Mean Corpuscular Volume 85.0 fL (80.0-98.0); NRBC Abs Auto 0.000 X10*3/uL (0.0-0.012); NRBC Pct Auto 0.0 /100WBC (0.0-0.2); Platelet Count 228 X10*3/uL (160-400); Red Blood Count 5.33 X10*6/uL (4.60-5.80); White Blood Count 3.4 X10*3/uL (4.8-10.8)
[2025-07-09 10:56] LABS: Alanine Aminotransferase 19 U/L (0-40); Albumin Level 4.5 g/dL (3.5-5.0); Alkaline Phosphatase 72 U/L (39-117); Anion Gap 9 (12-20); Aspartate Amino Transferase 29 U/L (5-37); Blood Urea Nitrogen 15 mg/dL (9-16); Calcium 9.5 mg/dL (8.4-10.2); Carbon Dioxide 29 mmol/L (22-29); Chloride 106 mmol/L (96-108); Cholesterol 198 mg/dL (<200); Estimated Glomerular Filt Rate > 60; HDL Cholesterol 58 mg/dL (>40); Potassium 4.3 mmol/L (3.3-5.1); Sodium 140 mmol/L (135-145); Total Protein 7.0 g/dL (6.5-8.0); Triglycerides 54 mg/dL (<150)
[2025-07-09 11:14] LABS: Free T4 (Free Thyroxine) 1.08 ng/dL (0.71-1.85); Thyroid Stimulating Hormone 1.27 uIU/mL (0.32-4.0)
[2025-07-09 11:56] LABS: Folate 10.6 ng/mL (> or = 4.0); Vitamin B12 623 pg/mL (200-900)
== END 2025-07-09 09:28 | disposition home or self-care (01) ==
LOC: HO.LAB 09:27
PROVIDERS: PCP Internal Medicine; Visit Provider Internal Medicine
DX: Z12.5 Encounter for screening for malignant neoplasm of prostate (principal); E78.00 Pure hypercholesterolemia, unspecified
CPT/HCPCS: 36415; 80053; 80061; 82607; 82746; 84153; 84439; 84443; 85025